=== PATIENT | female | born 1985 | race Caucasian/White ===

== ENCOUNTER 2017-02-16 14:13 | Inpatient (IN) | payer OTHER ==
[~2017-02-16] VITALS: Ht 152.4 cm; Wt 48.3 kg
[~2017-02-16 14:13] MED LIST: ALLEGRA ALLERGY60 MG PO; ALLERGY RELIEF10 M1 PO; AMLODIPINE BES2.5 MG PO; APTIOM400 MG PO; ASPIRIN81 M2 GT; ATIVAN2 MG PO; BANZEL200 MG PO; BENEFIBER236 GM PO; BONIVA150 MG PO; BONIVA3 MG/3 ML IV; CALCIUM + D SO1 EACH PO; CARBAMAZEPINE100 MG PO; CARBAMAZEPINE200 MG PO; CARBATROL-ER100 MG PO; CARBATROL-ER300 MG PO; CELEXA10 MG GT; CELEXA10 MG PO; CLARITIN,ALAVAR10 MG GT; CLARITIN,ALAVAR10 MG PO; CORTEF10 MG GT; CORTEF10 MG PO; CORTEF5 M1 GT; CORTEF5 M1 PO; DAILY VALUE1 EACH PO; DEPAKOTE500 MG PO; DEXAMETHASONE0.5 MG PO; DOXYCYCLINE HY100 MG PO; Dilaudid PO; ELAVIL10 MG PO; EQUETRO300 MG PO; FIBER GUMMIES1 EACH PO; FLORASTOR250 MG GT; FLORINEF ACETA0.1 MG PO; FLUDROCORTISON0.1 M1 GT; FYCOMPA4 MG PO; GABITRIL2 MG PO; GABITRIL4 MG PO; GENOTROPIN0.6 MG/0.2 SC; HYDROCORTISONE5 MG PO; IBUPROFEN800 MG GT; KEPPRA100 MG/1 M PO; Levaquin PO; Lovenox SC; MELATONIN5 M1 PO; MICROZIDE12.5 M1 PO; MIRALAX17 GM PO; MOBIC7.5 MG PO; MOTRIN400 MG PO; ONFI10 MG PO; PHENOBARBITAL30 MG PO; POLY-VITAMIN1 EACH PO; POTASSIUM20 MEQ/11 GT; PREMPRO 0.621 TABLET PO; PROBIOTIC1 EAC1 PO; PROTONIX20 MG PO; SOLU-CORTE100 MG/22 IM; SOY ISOFLAVONES40 MG PO; ST. JOSEPH ASPI81 MG PO; STOOL SOFTENER1 EAC2 PO; STOOL SOFTENER100 M1 PO; SYNTHROID100 MCG PO; SYNTHROID112 MCG GT; SYNTHROID112 MCG PO; SYNTHROID175 MCG PO; Senokot S,Pericolace PO; T3 PO; T4 PO; TAMSULOSIN HCL0.4 MG PO; TEGRETOL200 MG PO; TIAGABINE HCL2 MG GT; TIAGABINE HCL2 MG PO; TIAGABINE HCL4 MG PO; TYLENOL WITH C1 EACH PO; VIMPAT150 MG PO; VIMPAT200 MG PO; VITAMIN D35000 UNIT GT; VITAMIN D400 UNIT PO; VITAMIN D5000 INTUN PO; ZOFRAN ODT4 MG PO; [UNRECOGNIZED DRUG - OTHER] PO; [UNRECOGNIZED DRUG - OTHER] PO; [UNRECOGNIZED DRUG - OTHER] SC
[2017-02-16 15:31] LABS: EOSINOPHIL (%) 0.2 % (0-5); HEMATOCRIT 42.5 % (36.0-46.0); IMMATURE GRANULOCYTE (%) 0.4 % (0.0-0.7); INSTRUMENT ABS NEUTROPHIL CT 6.5 K/uL; LYMPHOCYTE COUNT 1.3 K/uL (1.0-2.8); MCH 32.2 PG (29.0-34.0); MCHC 33.4 G/DL (30.0-36.0); MCV 96.4 FL (83-99); MEAN PLAT.VOLUME 10.3 uM^3 (9.5-12.4); MONOCYTE (%) 7.3 % (3-12); MONOCYTE COUNT 0.6 K/uL (0-0.8); NEUTROPHIL COUNT 6.5 K/uL (1.8-6.4); PLATELET COUNT 168 K/uL (156-360); RBC DIS.WIDTH-CV 12.8 % (11.8-14.6); RBC DIS.WIDTH-SD 45.1 % (39-53); RED BLOOD COUNT 4.41 M/uL (3.80-5.20); WHITE BLOOD COUNT 8.4 K/uL (4.1-10.2)
[2017-02-16 15:39] LABS: CHLORIDE 98 mEq/L (99-109); SODIUM 138 mEq/L (136-147)
[2017-02-16 15:41] LABS: GLUCOSE 89 mg/dL (70-99)
[2017-02-16 15:42] LABS: ANION GAP 13 MEQ/L (2-14)
[2017-02-16 15:44] LABS: POTASSIUM 2.9 mEq/L (3.7-5.4)
[2017-02-16 15:45] LABS: GFR ESTIMATE (CALCULATED) > 59 mL/min/; UREA NITROGEN (BUN) 18 mg/dL (9-23)
[2017-02-16] MEDS ORDERED: KEPPRA100 MG/1 M GT ×2 (17:36→17:37)
[2017-02-16] MEDS ORDERED: CHILDREN'S30 MG/5 ML GT (17:36)
[2017-02-16] MEDS ORDERED: CORTEF5 M1 GT (17:38)
[2017-02-16] MEDS ORDERED: AMLODIPINE BES2.5 MG GT (17:39)
[2017-02-16] MEDS ORDERED: VITAMIN D315 ML GT (17:39)
[2017-02-16] MEDS ORDERED: RANITIDINE15 MG/1 ML GT (17:39)
[2017-02-16] MEDS ORDERED: CELEXA2 MG/1 ML GT (17:39)
[2017-02-16] MEDS ORDERED: GAS RELIEF40 MG/0.6 GT (17:40)
[2017-02-16] MEDS ORDERED: POT CHLORIDE GT (17:44)
[2017-02-16] MEDS ORDERED: CHOLESTYRAMINE L4 GM GT (17:44)
[2017-02-16 19:36] LABS: ADD MIUA? NO; BILIRUBIN NEGATIVE; BLOOD NEGATIVE; COLOR YELLOW ((YELLOW)); GLUCOSE (STRIP) NEGATIVE; KETONES NEGATIVE; LEUKOCYTES NEGATIVE; NITRITE NEGATIVE; PROTEIN (STRIP) NEGATIVE; SPECIFIC GRAVITY 1.009 (1.000-1.030); UCUL ADDED? NO; UROBILINOGEN 0.2 MG/DL (0.2-1.0)
[2017-02-16 21:34] VITALS: BP 102/65
[2017-02-16 21:41] VITALS: BP 102/65
[2017-02-17] VITALS (16 sets, daily range): BP systolic 81–159; BP diastolic 58–96
[2017-02-17 07:33] LABS: HEMATOCRIT 34.9 % (36.0-46.0); MCHC 33.5 G/DL (30.0-36.0); MCV 95.4 FL (83-99); MEAN PLAT.VOLUME 10.6 uM^3 (9.5-12.4); PLATELET COUNT 148 K/uL (156-360); RBC DIS.WIDTH-CV 13.1 % (11.8-14.6); RBC DIS.WIDTH-SD 46.2 % (39-53); RED BLOOD COUNT 3.66 M/uL (3.80-5.20)
[2017-02-17 07:35] LABS: WHITE BLOOD COUNT 11.3 K/uL (4.1-10.2)
[2017-02-17 08:06] LABS: ABS NEUTROPHIL COUNT 9.4; ANISOCYTOSIS 1+; BAND NEUTROPHILS 43.5 % (0-8.0); EOSINOPHIL ABS CT 0; INSTRUMENT ABS NEUTROPHIL CT 9.7 K/uL; LYMPHOCYTES 11.3 % (15.0-45.0); METAMYELOCYTES 1.7 %; MYELOCYTES 1.7 %; PLAT.SUFFICIENCY DECREASED
[2017-02-17 12:51] LABS: ANION GAP 6 MEQ/L (2-14); CHLORIDE 107 MEQ/L (99-109); GLUCOSE 93 mg/dL (70-99); SAMPLE HEMOLYSIS CHECK 0; SAMPLE ICTERIC CHECK 0; SAMPLE LIPEMIA CHECK 0; SODIUM 137 MEQ/L (136-147); UREA NITROGEN (BUN) 8 mg/dL (9-23)
[2017-02-17 13:16] LABS: GFR ESTIMATE (CALCULATED) > 59 mL/min/; POTASSIUM 3.8 MEQ/L (3.7-5.4)
[2017-02-17 15:17] LABS: BASE EXCESS -0.2 mEq/L (-3 to +3); BICARBONATE 23.9 mEq/L (22-26); CARBOXY HGB 1.9 % (0-5); METHEMOGLOBIN 1.9 % (0-1.5); PCO2 36 mm Hg (35-45); PO2 42 mm Hg (80-100); pH 7.43 (7.35-7.45)
[2017-02-17 15:18] LABS: COMMENTS - BLOOD GASES A+C+; DEVICE NRBM; FI02 100 %; O2 FLOW 15 L/MIN; SITE LR; TOTAL RESP RATE 30 resp/min
[2017-02-17 20:09] LABS: METH RESISTANT S AUREUS PCR NEGATIVE (NEGATIVE)
[2017-02-17 20:12] LABS: PROBE CHECK PASS; SPECIMEN PROCESSING CONTROL PASS
[2017-02-18] VITALS (23 sets, daily range): BP systolic 75–111; BP diastolic 37–79
[2017-02-18 05:15] LABS: SODIUM 141 mEq/L (136-147)
[2017-02-18 05:26] LABS: SODIUM 142 mEq/L (136-147)
[2017-02-18 05:28] LABS: MAGNESIUM 1.6 mg/dL (1.3-2.7)
[2017-02-18 05:29] LABS: ANION GAP 10 MEQ/L (2-14); CHLORIDE 109 mEq/L (99-109); CHLORIDE 110 mEq/L (99-109); GLUCOSE 141 mg/dL (70-99); POTASSIUM 2.8 mEq/L (3.7-5.4)
[2017-02-18 05:30] LABS: GLUCOSE 141 mg/dL (70-99); TOTAL BILIRUBIN 0.3 mg/dL (0.0-1.0)
[2017-02-18 05:31] LABS: ALKALINE PHOSPHATASE 45 IU/L (3-129); ANION GAP 9 MEQ/L (2-14)
[2017-02-18 05:32] LABS: GFR ESTIMATE (CALCULATED) > 59 mL/min/
[2017-02-18 05:33] LABS: GFR ESTIMATE (CALCULATED) > 59 mL/min/; UREA NITROGEN (BUN) 14 mg/dL (9-23)
[2017-02-18 05:34] LABS: UREA NITROGEN (BUN) 13 mg/dL (9-23)
[2017-02-18 21:04] LABS: ANION GAP 9 MEQ/L (2-14); CHLORIDE 111 MEQ/L (99-109); GFR ESTIMATE (CALCULATED) > 59 mL/min/; GLUCOSE 109 mg/dL (70-99); MAGNESIUM 2.7 mg/dl (1.3-2.7); POTASSIUM 3.4 MEQ/L (3.7-5.4); SAMPLE HEMOLYSIS CHECK 0; SAMPLE ICTERIC CHECK 0; SAMPLE LIPEMIA CHECK 0; SODIUM 143 MEQ/L (136-147); UREA NITROGEN (BUN) 10 mg/dL (9-23)
[2017-02-19] VITALS (23 sets, daily range): BP systolic 97–121; BP diastolic 62–87
[2017-02-19 06:39] LABS: ANION GAP 8 MEQ/L (2-14); CHLORIDE 109 MEQ/L (99-109); GFR ESTIMATE (CALCULATED) > 59 mL/min/; GLUCOSE 119 mg/dL (70-99); MAGNESIUM 2.4 mg/dl (1.3-2.7); POTASSIUM 3.1 MEQ/L (3.7-5.4); SAMPLE HEMOLYSIS CHECK 0; SAMPLE ICTERIC CHECK 0; SAMPLE LIPEMIA CHECK 0; SODIUM 141 MEQ/L (136-147); UREA NITROGEN (BUN) 9 mg/dL (9-23)
[2017-02-19 13:33] LABS: HEMATOCRIT 27.6 % (36.0-46.0); MCV 95.8 FL (83-99)
[2017-02-19 17:24] LABS: EOSINOPHIL (%) 0 % (0-5); HEMATOCRIT 29.6 % (36.0-46.0); IMMATURE GRANULOCYTE (%) 1.3 % (0.0-0.7); IMMATURE GRANULOCYTE COUNT 0.2 K/uL; INSTRUMENT ABS NEUTROPHIL CT 9.7 K/uL; MCH 32.3 PG (29.0-34.0); MCHC 33.8 G/DL (30.0-36.0); MCV 95.5 FL (83-99); MEAN PLAT.VOLUME 10.8 uM^3 (9.5-12.4); MONOCYTE (%) 4.5 % (3-12); MONOCYTE COUNT 0.6 K/uL (0-0.8); NEUTROPHIL (%) 77.8 % (45-76); NEUTROPHIL COUNT 9.7 K/uL (1.8-6.4); PLATELET COUNT 132 K/uL (156-360); RBC DIS.WIDTH-CV 13.5 % (11.8-14.6); RBC DIS.WIDTH-SD 46.9 % (39-53); WHITE BLOOD COUNT 12.5 K/uL (4.1-10.2)
[2017-02-19 17:57] LABS: ANION GAP 9 MEQ/L (2-14); CHLORIDE 109 MEQ/L (99-109); GFR ESTIMATE (CALCULATED) > 59 mL/min/; GLUCOSE 91 mg/dL (70-99); SAMPLE HEMOLYSIS CHECK 0; SAMPLE ICTERIC CHECK 0; SAMPLE LIPEMIA CHECK 0; SODIUM 142 MEQ/L (136-147); UREA NITROGEN (BUN) 8 mg/dL (9-23)
[2017-02-20] VITALS (18 sets, daily range): BP systolic 94–138; BP diastolic 55–99
[2017-02-20 05:54] LABS: EOSINOPHIL (%) 0 % (0-5); HEMATOCRIT 29.7 % (36.0-46.0); IMMATURE GRANULOCYTE (%) 2.1 % (0.0-0.7); IMMATURE GRANULOCYTE COUNT 0.2 K/uL; INSTRUMENT ABS NEUTROPHIL CT 8.1 K/uL; LYMPHOCYTE COUNT 1.6 K/uL (1.0-2.8); MCH 32.1 PG (29.0-34.0); MCHC 33.7 G/DL (30.0-36.0); MCV 95.2 FL (83-99); MEAN PLAT.VOLUME 10.9 uM^3 (9.5-12.4); MONOCYTE (%) 4.3 % (3-12); MONOCYTE COUNT 0.5 K/uL (0-0.8); NEUTROPHIL (%) 77.6 % (45-76); NEUTROPHIL COUNT 8.1 K/uL (1.8-6.4); NRBC (%) 0.2 /100 WBC (0-0); PLATELET COUNT 141 K/uL (156-360); RBC DIS.WIDTH-CV 13.3 % (11.8-14.6); RBC DIS.WIDTH-SD 46.5 % (39-53); RED BLOOD COUNT 3.12 M/uL (3.80-5.20); WHITE BLOOD COUNT 10.4 K/uL (4.1-10.2)
[2017-02-20 06:56] LABS: ANION GAP 11 MEQ/L (2-14); CHLORIDE 107 MEQ/L (99-109); GFR ESTIMATE (CALCULATED) > 59 mL/min/; GLUCOSE 106 mg/dL (70-99); POTASSIUM 2.5 MEQ/L (3.7-5.4); SAMPLE HEMOLYSIS CHECK 0; SAMPLE ICTERIC CHECK 0; SAMPLE LIPEMIA CHECK 0; SODIUM 145 MEQ/L (136-147); UREA NITROGEN (BUN) 7 mg/dL (9-23)
[2017-02-20 18:56] LABS: ANION GAP 9 MEQ/L (2-14); CHLORIDE 105 MEQ/L (99-109); GFR ESTIMATE (CALCULATED) > 59 mL/min/; GLUCOSE 91 mg/dL (70-99); MAGNESIUM 1.8 mg/dl (1.3-2.7); SAMPLE HEMOLYSIS CHECK 0; SAMPLE ICTERIC CHECK 0; SAMPLE LIPEMIA CHECK 0; SODIUM 141 MEQ/L (136-147); UREA NITROGEN (BUN) 5 mg/dL (9-23)
[2017-02-20 18:57] LABS: POTASSIUM 3.2 MEQ/L (3.7-5.4)
[2017-02-21] VITALS (12 sets, daily range): BP systolic 89–130; BP diastolic 55–99
[2017-02-21 05:50] LABS: EOSINOPHIL (%) 0.8 % (0-5); EOSINOPHIL COUNT 0.1 K/uL (0-0.3); HEMATOCRIT 33.8 % (36.0-46.0); IMMATURE GRANULOCYTE (%) 3.5 % (0.0-0.7); IMMATURE GRANULOCYTE COUNT 0.4 K/uL; INSTRUMENT ABS NEUTROPHIL CT 6.6 K/uL; MCHC 33.4 G/DL (30.0-36.0); MCV 95.8 FL (83-99); MEAN PLAT.VOLUME 10.5 uM^3 (9.5-12.4); MONOCYTE (%) 7.6 % (3-12); MONOCYTE COUNT 0.9 K/uL (0-0.8); NEUTROPHIL (%) 54.7 % (45-76); NEUTROPHIL COUNT 6.6 K/uL (1.8-6.4); NRBC (%) 0.7 /100 WBC (0-0); PLATELET COUNT 170 K/uL (156-360); RBC DIS.WIDTH-CV 13.5 % (11.8-14.6); RBC DIS.WIDTH-SD 47.6 % (39-53); RED BLOOD COUNT 3.53 M/uL (3.80-5.20)
[2017-02-21 23:13] LABS: CHLORIDE 110 mEq/L (99-109); SODIUM 140 mEq/L (136-147)
[2017-02-21 23:15] LABS: GLUCOSE 90 mg/dL (70-99)
[2017-02-21 23:17] LABS: ANION GAP 6 MEQ/L (2-14)
[2017-02-21 23:19] LABS: GFR ESTIMATE (CALCULATED) > 59 mL/min/
[2017-02-21 23:20] LABS: UREA NITROGEN (BUN) 10 mg/dL (9-23)
[2017-02-21 23:24] LABS: POTASSIUM 4.7 mEq/L (3.7-5.4)
[2017-02-22] VITALS (8 sets, daily range): BP systolic 102–142; BP diastolic 63–101
[2017-02-22 06:02] LABS: HEMATOCRIT 34.7 % (36.0-46.0); MCH 31.8 PG (29.0-34.0); MCHC 32.3 G/DL (30.0-36.0); MCV 98.6 FL (83-99); MEAN PLAT.VOLUME 10.5 uM^3 (9.5-12.4); NRBC (%) 0.4 /100 WBC (0-0); PLATELET COUNT 175 K/uL (156-360); RBC DIS.WIDTH-CV 13.9 % (11.8-14.6); RBC DIS.WIDTH-SD 50.3 % (39-53); RED BLOOD COUNT 3.52 M/uL (3.80-5.20); WHITE BLOOD COUNT 9.5 K/uL (4.1-10.2)
[2017-02-22 06:46] LABS: ANION GAP 10 MEQ/L (2-14); CHLORIDE 108 MEQ/L (99-109); GFR ESTIMATE (CALCULATED) > 59 mL/min/; GLUCOSE 86 mg/dL (70-99); SAMPLE HEMOLYSIS CHECK 0; SAMPLE ICTERIC CHECK 0; SAMPLE LIPEMIA CHECK 0; SODIUM 142 MEQ/L (136-147); UREA NITROGEN (BUN) 9 mg/dL (9-23)
[2017-02-22 06:55] LABS: MAGNESIUM 2.1 mg/dl (1.3-2.7)
[2017-02-23 01:37] LABS: C DIFF TOXIN POSITIVE (NEGATIVE)
[2017-02-23 01:38] LABS: PROBE CHECK PASS
[2017-02-23 04:32] VITALS: BP 118/75
[2017-02-23 07:21] LABS: HEMATOCRIT 34.2 % (36.0-46.0); MCH 32.7 PG (29.0-34.0); MCHC 34.2 G/DL (30.0-36.0); MCV 95.5 FL (83-99); MEAN PLAT.VOLUME 10.8 uM^3 (9.5-12.4); NRBC (%) 0.1 /100 WBC (0-0); PLATELET COUNT 217 K/uL (156-360); RBC DIS.WIDTH-CV 13.3 % (11.8-14.6); RBC DIS.WIDTH-SD 46.2 % (39-53); RED BLOOD COUNT 3.58 M/uL (3.80-5.20)
[2017-02-23 07:23] LABS: WHITE BLOOD COUNT 14.2 K/uL (4.1-10.2)
[2017-02-23 07:42] LABS: ANION GAP 8 MEQ/L (2-14); CHLORIDE 106 MEQ/L (99-109); GFR ESTIMATE (CALCULATED) > 59 mL/min/; GLUCOSE 73 mg/dL (70-99); POTASSIUM 4.2 MEQ/L (3.7-5.4); SAMPLE HEMOLYSIS CHECK 0; SAMPLE ICTERIC CHECK 0; SAMPLE LIPEMIA CHECK 0; SODIUM 141 MEQ/L (136-147); UREA NITROGEN (BUN) 9 mg/dL (9-23)
[2017-02-23 08:00] VITALS: BP 125/80
[2017-02-23 12:00] VITALS: BP 96/75
[2017-02-23 16:26] VITALS: BP 128/64
[2017-02-23 20:26] VITALS: BP 102/60
[2017-02-24 04:08] VITALS: BP 108/63
[2017-02-24] MEDS ORDERED: CHILDREN'S30 MG/5 ML GT (06:24)
[2017-02-24] MEDS ORDERED: VANCOMYCIN125 MG/2.5 PO (06:29)
[2017-02-24] MEDS ORDERED: KEPPRA100 MG/1 M PO (06:30)
[2017-02-24 06:47] LABS: BASOPHIL COUNT 0.1 K/uL (0-0.1); EOSINOPHIL (%) 0.8 % (0-5); EOSINOPHIL COUNT 0.1 K/uL (0-0.3); HEMATOCRIT 35.4 % (36.0-46.0); IMMATURE GRANULOCYTE (%) 0.9 % (0.0-0.7); IMMATURE GRANULOCYTE COUNT 0.1 K/uL; INSTRUMENT ABS NEUTROPHIL CT 9.4 K/uL; LYMPHOCYTE COUNT 4.8 K/uL (1.0-2.8); MCH 32.2 PG (29.0-34.0); MCHC 33.3 G/DL (30.0-36.0); MCV 96.5 FL (83-99); MEAN PLAT.VOLUME 10.9 uM^3 (9.5-12.4); MONOCYTE (%) 3.2 % (3-12); MONOCYTE COUNT 0.5 K/uL (0-0.8); NEUTROPHIL (%) 62.8 % (45-76); NEUTROPHIL COUNT 9.4 K/uL (1.8-6.4); PLATELET COUNT 235 K/uL (156-360); RBC DIS.WIDTH-CV 13.2 % (11.8-14.6); RBC DIS.WIDTH-SD 46.9 % (39-53); RED BLOOD COUNT 3.67 M/uL (3.80-5.20)
[2017-02-24 07:06] LABS: ALKALINE PHOSPHATASE 78 IU/L (3-129); ANION GAP 10 MEQ/L (2-14); CHLORIDE 106 MEQ/L (99-109); GFR ESTIMATE (CALCULATED) > 59 mL/min/; GLUCOSE 88 mg/dL (70-99); POTASSIUM 3.7 MEQ/L (3.7-5.4); SAMPLE HEMOLYSIS CHECK 0; SAMPLE ICTERIC CHECK 0; SAMPLE LIPEMIA CHECK 0; SODIUM 142 MEQ/L (136-147); TOTAL BILIRUBIN 0.3 MG/DL (0.0-1.0); UREA NITROGEN (BUN) 9 mg/dL (9-23)
== END 2017-02-24 09:17 | disposition home or self-care (01) | DRG 871 ==
LOC: EME 14:13 → 4WEST 19:00 → 4EAST 19:00 → EDOF 19:00 → 4EAST 21:20 → 4WEST 02-17 15:22 → 2EAST 02-22 10:37
PROVIDERS: Emergency Medicine; Internal Medicine Critical Care Medicine; Internal Medicine Endocrinology, Diabetes & Metabolism; Nurse Practitioner Adult Health; Pediatrics; Physician Assistant
DX: A41.9 Sepsis, unspecified organism (principal); J69.0 Pneumonitis due to inhalation of food and vomit; J96.01 Acute respiratory failure with hypoxia; J98.11 Atelectasis; A04.7 Enterocolitis due to Clostridium difficile; E23.0 Hypopituitarism; E27.9 Disorder of adrenal gland, unspecified; F71 Moderate intellectual disabilities; M81.0 Age-related osteoporosis without current pathological fracture; G40.909 Epilepsy, unspecified, not intractable, without status epilepticus; E87.6 Hypokalemia; G89.29 Other chronic pain; E03.9 Hypothyroidism, unspecified; D64.9 Anemia, unspecified; E83.52 Hypercalcemia; Z88.1 Allergy status to other antibiotic agents; Z88.0 Allergy status to penicillin; Z88.8 Allergy status to other drugs, medicaments and biological substances; Z93.1 Gastrostomy status; Z85.831 Personal history of malignant neoplasm of soft tissue; Z92.3 Personal history of irradiation; R41.82 Altered mental status, unspecified; R13.10 Dysphagia, unspecified
CPT/HCPCS: 31720; 36415; 36600; 70450; 71010; 71250; 80048; 80048 91; 80053; 80069; 81003; 82330; 82803; 83605; 83735; 83970; 84100; 84439; 84443; 85014; 85018; 85025; 85027; 87040; 87070; 87077; 87106; 87147; 87186; 87205; 87493; 87641; 94640; 94640 76; 94667; 94668; 94760; 94799; 99202; 99281; 99285; J0610; J1335; J1644; J1720; J1953; J2020; J2060; J3475; J3480; J7030; J7040; J7050; S0028

== ENCOUNTER 2017-11-12 08:48 | Emergency (ER) | payer OTHER ==
[~2017-11-12] VITALS: Ht 152.4 cm; Wt 47.2 kg
[~2017-11-12 08:48] MED LIST changes: +AMLODIPINE BES2.5 MG GT; +CELEXA2 MG/1 ML GT; +CHILDREN'S30 MG/5 ML GT; +CHOLESTYRAMINE L4 GM GT; +GAS RELIEF40 MG/0.6 GT; +KEPPRA100 MG/1 M GT; +POT CHLORIDE GT; +RANITIDINE15 MG/1 ML GT; +VANCOMYCIN125 MG/2.5 PO; +VITAMIN D315 ML GT
[2017-11-12 10:46] LABS: HEMATOCRIT 44.8 % (36.0-46.0); MCH 32.4 PG (29.0-34.0); MCHC 33.5 G/DL (30.0-36.0); MCV 96.8 FL (83-99); MEAN PLAT.VOLUME 10.6 uM^3 (9.5-12.4); PLATELET COUNT 172 K/uL (156-360); RBC DIS.WIDTH-CV 12.2 % (11.8-14.6); RBC DIS.WIDTH-SD 43.5 % (39-53); RED BLOOD COUNT 4.63 M/uL (3.80-5.20); WHITE BLOOD COUNT 9.6 K/uL (4.1-10.2)
[2017-11-12 10:55] LABS: CHLORIDE 102 mEq/L (99-109); POTASSIUM 4.5 mEq/L (3.7-5.4); SODIUM 139 mEq/L (136-147)
[2017-11-12 10:57] LABS: GLUCOSE 76 mg/dL (70-99)
[2017-11-12 10:58] LABS: ANION GAP 13 MEQ/L (2-14)
[2017-11-12 10:59] LABS: TOTAL BILIRUBIN 0.5 mg/dL (0.0-1.0)
[2017-11-12 11:00] LABS: ALKALINE PHOSPHATASE 77 IU/L (3-129)
[2017-11-12 11:01] LABS: GFR ESTIMATE (CALCULATED) > 59 mL/min/
[2017-11-12 11:02] LABS: UREA NITROGEN (BUN) 15 mg/dL (9-23)
[2017-11-12 12:25] LABS: ADD MIUA? YES; BILIRUBIN NEGATIVE; BLOOD NEGATIVE; COLOR YELLOW ((YELLOW)); GLUCOSE (STRIP) NEGATIVE; KETONES NEGATIVE; LEUKOCYTES NEGATIVE; NITRITE NEGATIVE; PROTEIN (STRIP) NEGATIVE; SPECIFIC GRAVITY 1.021 (1.000-1.030); UROBILINOGEN 0.2 MG/DL (0.2-1.0)
[2017-11-12 12:53] LABS: AMORPHOUS PHOSPHATE CRYSTALS 2+; BACTERIA 1+ /HPF; CRYSTALS PRESENT; EPITHELIAL CELLS NONE SEEN /HPF; MUCUS NONE SEEN /LPF; RED BLOOD CELLS NONE SEEN /HPF (0-5); UCUL ADDED? NO; WHITE BLOOD CELLS NONE SEEN /HPF (0-5)
[2017-11-12] MEDS ORDERED: FLEXERIL5 MG PO (12:56)
[2017-11-12 13:10] VITALS: BP 145/111
== END 2017-11-12 13:52 | disposition home or self-care (01) ==
LOC: EME 08:48
PROVIDERS: Nurse Practitioner Family
DX: M25.551 Pain in right hip (principal); M25.552 Pain in left hip; M94.0 Chondrocostal junction syndrome [Tietze]; W18.30XA Fall on same level, unspecified, initial encounter; E03.9 Hypothyroidism, unspecified; Z86.73 Personal history of transient ischemic attack (TIA), and cerebral infarction without residual deficits
CPT/HCPCS: 71020; 72129; 72132; 73522; 74177; 80053; 81003; 85027; 93005; 99281; 99285; J7030

== ENCOUNTER → 2017-11-23 | Outpatient (CLI) | payer OTHER ==
[~2017-11-23] MED LIST changes: +FLEXERIL5 MG PO
[2017-11-23 17:10] LABS: HEMATOCRIT 42.5 % (36.0-46.0); HEMOGLOBIN 14.3 G/DL (11.9-15.5); MCH 32.4 PG (29.0-34.0); MCHC 33.6 G/DL (30.0-36.0); MCV 96.2 FL (83-99); PLATELET COUNT 219 K/uL (156-360); RBC DIS.WIDTH-CV 11.9 % (11.8-14.6); RBC DIS.WIDTH-SD 42.5 % (39-53); RED BLOOD COUNT 4.42 M/uL (3.80-5.20); WHITE BLOOD COUNT 7.6 K/uL (4.1-10.2)
== END | disposition home or self-care (01) ==
LOC: AMB 13:30
PROVIDERS: Physician Assistant
PROC: BW201ZZ Computerized Tomography (CT Scan) of Abdomen using Low Osmolar Contrast (ICD-10-PCS; principal; 2017-11-23)
DX: Z43.1 Encounter for attention to gastrostomy (principal); R10.9 Unspecified abdominal pain; Z88.0 Allergy status to penicillin; Z88.1 Allergy status to other antibiotic agents
CPT/HCPCS: 74019; 74177; 85027; 99212